=== PATIENT | male | born 2000 | race Caucasian/White ===

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

== ENCOUNTER 2024-07-08 14:21 | Emergency (ER) | payer OTHER, MEDICAID ==
[~2024-07-08] VITALS: Ht 193 cm; Wt 127.0 kg
[~2024-07-08 14:21] MED LIST: BENADRYL25 M2 PO; PREDNISONE20 M1 PO
[2024-07-08] MEDS ORDERED: ARMODAFINIL250 MG PO (14:40)
[2024-07-08] MEDS ORDERED: METHYLPHENIDATE20 M2 PO (14:40)
[2024-07-08] MEDS ORDERED: ESCITALOPRAM OX20 MG PO (14:40)
[2024-07-08] MEDS ORDERED: VITAMIN D350 MCG PO (14:40)
[2024-07-08] MEDS ORDERED: Tdap Vaccine 0.5 ML SYR (Adult Vaccine) IM ONE (15:45)
[2024-07-08] MEDS ORDERED: MELOXICAM15 MG PO (16:54)
== END 2024-07-08 17:04 | disposition home or self-care (01) ==
LOC: ED 14:21
DX: S50.812A Abrasion of left forearm, initial encounter (principal); S50.811A Abrasion of right forearm, initial encounter; M25.562 Pain in left knee; M25.552 Pain in left hip; F31.9 Bipolar disorder, unspecified; F90.9 Attention-deficit hyperactivity disorder, unspecified type; V29.99XA Rider (driver) (passenger) of other motorcycle injured in unspecified traffic accident, initial encounter; Y93.55 Activity, bike riding; Y92.410 Unspecified street and highway as the place of occurrence of the external cause; Y99.8 Other external cause status